=== PATIENT | male | born 1940 | race Caucasian/White ===

== ENCOUNTER 2017-04-30 12:24 | Emergency (ER) | payer MEDICARE, OTHER ==
[~2017-04-30] VITALS: Ht 172.7 cm; Wt 79.4 kg
[2017-04-30 12:37] VITALS: BP 107/72
[2017-04-30] MEDS ORDERED: LOPRESSOR50 PO (12:44)
[2017-04-30] MEDS ORDERED: CRESTOR20 MG PO (12:44)
[2017-04-30] MEDS ORDERED: UNICOMPLEX M TA1 TA1 PO (12:44)
[2017-04-30] MEDS ORDERED: COQ-10100 MG PO (12:45)
== END 2017-04-30 14:02 | disposition home or self-care (01) ==
LOC: M.ERS 12:24
DX: Z53.21 Procedure and treatment not carried out due to patient leaving prior to being seen by health care provider (principal)